=== PATIENT | female | born 1950 | race Caucasian/White ===

== ENCOUNTER 2016-10-11 19:00 | Emergency (ER) | payer MEDICARE, OTHER ==
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
[2016-10-11 20:33] LABS: Hematocrit 42.6 % (37.0-47.0); Hemoglobin 14.1 gm/dL (12.5-16.0); Mean Corpuscular Hemoglobin 30.8 pg (27-31); Mean Corpuscular Hgb Conc 33.1 g/dl (32-36); Mean Platelet Volume 9.5 fl (6.0-9.5); Neutrophil # 10.4 K/mm3 (1.3-6.0); Neutrophil % 77.2 % (42-75.0); Platelet Count 394 K/mm3 (150-450); Red Blood Count 4.58 M/mm3 (4.2-5.4); Red Cell Distribution Width 15.1 % (11.5-14.0); White Blood Count 13.5 K/mm3 (4.0-10.5)
--- OUTSIDE RECORDS SUMMARY | 2016-10-11 20:43 | XMS REPORT | Continuity of Care Document ---
:1950 Author Organization [facility] ([facility]) Address [address] [place] [address] Phone [phone] Care Team Providers Name Role Phone Sharp Janet Primary Care Provider [phone] Source Comments This disclosure is being made pursuant to the Care Everywhere program, applicable federal and state laws, and may not contain all informaitonavailable regarding this patient.[facility] ([facility]) Active Allergies and Adverse Reactions Allergen Noted Date Severity Reactions Comments Bimatoprost 03/07/2010 High OTHER Chronic Mac. Edema Ketorolac 08/03/2009 Pruritus,Angioedema Latex 09/14/2009 High Rash Pt states bandaids Meperidine Agitation,Hallucinations demerol Prednisone 12/05/2010 Hallucinations Large does cause problems Current Medications Prescription Sig. Disp. Refills Start Date End Date Status timolol 0.5 % instill 1 Drop 1 Bottle 11 01/04/2010 Active ophthalmic gel-forming onto both eyes daily. Indications: Ocular Hypertension, Open Angle Glaucoma metoPROLol (LOPRESSOR) Take 1 Tab by 180 Tab 3 03/15/2010 Active 50 mg tablet mouth every 12 hours. Indications: Hypertension acetaminophen 325 mg Take 650 mg by Active tablet mouth every 4 hours as needed. cholecalciferol Take 2,000 Units Active (VITAMIN D3) 1,000 by mouth daily. unit tablet gabapentin 300 mg Take 300 mg by Active capsule mouth 3 times daily. predniSONE 10 mg Take 2.5 mg by Active tablet mouth daily levothyroxine 100 mcg Take 200 mcg by Active tablet mouth every morning before breakfast Total srvi=559.5 mcg levothyroxine 125 mcg Take 37.5 mcg by Active tablet mouth every morning before breakfast Total qird=152.5 mcg DULoxetine (CYMBALTA) Take 90 mg by Active 60 mg capsule mouth 2 times daily simvastatin 10 mg Take 10 mg by Active tablet mouth every evening. warfarin 1 mg tablet Take by mouth 200 Tab 3 06/20/2012 Active daily as directed. Have INR checked and adjust dose as directed by physician. Indications: DEEP VEIN THROMBOSIS PREVENTION docusate 100 mg Take 1 Cap by 100 Cap 0 06/20/2012 Active capsule mouth 2 times daily as needed for Constipation. Indications: CONSTIPATION buPROPion (WELLBUTRIN Take 300 mg by Active XL) 300 mg extended mouth Every release tablet 24 hour morning glimepiride 1 mg Take 1 mg by mouth Active tablet Every morning traMADol 50 mg tablet Take 100 mg by Active mouth 4 times daily as needed clonazePAM 0.5 mg Take 0.5 mg by Active tablet mouth 2 times daily as needed fluticasone 50 Use 2 Sprays into Active mcg/Actuation nasal both nostrils spray daily sennosides 8.6 mg Take 1 Tab by Active tablet mouth 2 times daily omeprazole 20 mg Take 1 Cap (20 mg 30 Cap 11 11/18/2014 Active enteric coated capsule total) by mouth daily furosemide 80 mg Take 1 Tab (80 mg 60 Tab 11 11/20/2014 Active tablet total) by mouth 2 times daily enalapril 5 mg tablet Take 1 Tab (5 mg 30 Tab 11 11/20/2014 Active total) by mouth daily potassium chloride Take 3 Tabs (30 180 Tab 11 11/20/2014 Active (KLOR-CON) 10 mEq XR mEq total) by tablet mouth 3 times daily spironolactone 25 mg Take 1 Tab (25 mg 60 Tab 11 11/20/2014 Active tablet total) by mouth 2 times daily LAMOTRIGINE (LAMICTAL Take by mouth 3 Active PO) times daily. metOLazone 2.5 mg 1 tablet (2.5 mg 10 tablet 3 04/11/2016 Active tablet total) daily. Take only when directed by your physician Active Problems Problem Noted Date Pain in knee joint 06/19/2012 S/P knee replacement 06/19/2012 Elevated serum creatinine 06/06/2012 Hypokalemia 06/06/2012 Glaucoma - Mixed Mechanism 03/07/2010 Low back pain 01/11/2010 History of pulmonary embolism 09/14/2009 Gout 09/14/2009 Polymyalgia rheumatica 09/14/2009 Essential hypertension 09/14/2009 Other and unspecified hyperlipidemia 09/14/2009 Morbid obesity 09/14/2009 SUSAN (obstructive sleep apnea) 09/14/2009 HYPOTHYROIDISM NOS 09/05/2001 Resolved Problems Problem Noted Date Resolved Date Glaucoma 09/14/2009 03/07/2010 Most Recent Encounters Date Type Specialty Providers Description 10/10/2016 Office Visit Tiffany Vivas MD Subj: Upcoming Appt Reminder 09/05/2016 Office Visit Tiffany Vivas MD Subj: Upcoming Appt Reminder 08/15/2016 Office Visit Tiffany Vivas MD Subj: Appointment Tiffany Haley MD Canceled 08/08/2016 Office Visit Tiffany Vivas MD Subj: Appointment Scheduled Immunizations Name Dates Previously Given Next Due Influenza, PF 02/22/2010 Influenza, unspecified 01/29/2012,02/01/2007 Pneumococcal, unspecified 02/11/2002 Social History Tobacco Use Types Packs/Day Years Used Date Never Smoker Smokeless Tobacco: Never Used Alcohol Use Drinks/Week oz/Week Comments No Last Filed Vital Signs Vital Sign Reading Time Taken Blood Pressure 140/78 04/11/2016 2:33 PM [employer] Pulse 86 04/11/2016 2:33 PM [employer] Temperature 36.3 C (97.4 F) 04/11/2016 2:33 PM [employer] Respiratory Rate 18 04/11/2016 2:33 PM [employer] Height 1.638 m (5' 4.5") 04/11/2016 2:33 PM [employer] Weight 130.636 kg (288 lb) 04/11/2016 2:33 PM [employer] Body Mass Index 48.69 04/11/2016 2:33 PM [employer] Oxygen Saturation 98% 04/11/2016 2:33 PM [employer] Plan of Care Date Type Specialty Providers Description 11/07/2016 Appointment [facility] Tiffany Casper MD Subj: Appointment [address] [place] [address] [phone] (Fax) Health Maintenance Due Date Last Done Comments HCV Screening 1950 Hepatitis B Vaccine (1 of 3 - Primary 1950 Series) Tdap Vaccine 1961 Td Vaccine 01/31/1968 Mammogram 1990 Colonoscopy 2000 Zoster Vaccine 2010 DIABETIC: Microalbumin 01/19/2011 01/19/2010, 09/14/2009 DIABETIC: Cholesterol 04/15/2011 04/15/2010, 06/30/2009 Diabetic: Hdl 04/15/2011 04/15/2010, 06/30/2009 Diabetic: Ldl 04/15/2011 04/15/2010, 06/30/2009, 06/30/2009 DIABETIC: Triglycerides 04/15/2011 04/15/2010, 06/30/2009 DIABETIC: Hemoglobin A1C 12/19/2012 06/21/2012, 04/15/2010, 12/13/2009 DIABETIC: Foot Exam 11/10/2014 DIABETIC: Retinal Eye Exam 11/10/2014 Osteoporosis Screening (DXA Bone 2015 Density) Pneumococcal Vaccine (1 of 2 - PCV13) 2015 Influenza Vaccine: Seasonal (Season 11/28/2016 01/29/2012, 02/22/2010, Ended) 02/01/2007 Results from Last 3 Months Not on file
[2016-10-11 20:44] LABS: Prothrombin Time (Patient) 44.1 Seconds (9.4-11.4)
[2016-10-11 20:46] LABS: Urine Bilirubin Negative (NEGATIVE); Urine Blood Negative /ul (NEGATIVE); Urine Ketone Negative (NEGATIVE); Urine Nitrite Negative (NEGATIVE); Urine Protein 15 mg/dL (NEGATIVE); Urine Urobilinogen Normal (NORMAL); Urine pH 5.5 pH (5.0-7.0)
[2016-10-11 20:47] LABS: Albumin * 3.6 gm/dl (3.4-5.0); Bilirubin, Total 0.6 mg/dL (0.0-1.1); Ca. Corrected For Albumin 10.2 mg/dL (8.4-10.2); Calcium * 10.2 mg/dL (7.9-10.9); Carbon Dioxide 28.2 mmol/L (24-32.6); Potassium 4.2 mmol/L (3.4-4.6); Total Protein 8.1 gm/dL (6.2-8.2)
[2016-10-11 20:50] LABS: INR 4.24 INR (0.90-1.10)
[2016-10-11 20:57] LABS: Urine Appearance Clear; Urine Bacteria None Seen; Urine Color Yellow; Urine RBC None Seen /hpf (0-5); Urine WBC None Seen /hpf (0-5)
[2016-10-11 21:11] LABS: White Blood Count None Seen
[2016-10-11 21:12] LABS: Bacteria Moderate; Yeast None Seen
[2016-10-11 21:39] VITALS: BP 123/92
== END 2016-10-11 21:46 | disposition home or self-care (01) ==
LOC: ER 19:00
DX: E86.0 Dehydration (principal); Z79.01 Long term (current) use of anticoagulants; R19.7 Diarrhea, unspecified